=== PATIENT | male | born 1985 | race Caucasian/White ===

== ENCOUNTER → 2018-08-31 | Outpatient (CLI) | payer OTHER | LOC: SUPIMAGING 09:06 → EDSTATUS 16:09 | PROVIDERS: ATTEND Family Medicine | DX: M76.891 Other specified enthesopathies of right lower limb, excluding foot (principal) | CPT/HCPCS: 73562-PN ==

== ENCOUNTER → 2018-09-08 | Outpatient (CLI) | payer OTHER | LOC: FIMAGING 07:51 | PROVIDERS: ATTEND Family Medicine | DX: M23.8X1 Other internal derangements of right knee (principal); M25.461 Effusion, right knee; M25.561 Pain in right knee ==